=== PATIENT | male | born 1955 | race Hispanic/Latino ===

== ENCOUNTER 2021-02-06 11:51 | Observation (INO) | payer MEDICARE ==
[~2021-02-06] VITALS: Ht 167.6 cm; Wt 83.9 kg
[2021-02-06] MEDS ORDERED: ASPIRIN 81 MG CHEW TAB PO NR (12:05)
[2021-02-06] MEDS ORDERED: NITROGLYCERIN 2% OINT 1 GM PKT TOP ONE (12:15)
[2021-02-06] MEDS ORDERED: PANTOPRAZOLE 40 MG 10ML VIAL IV NR (12:15)
[2021-02-06 12:40] LABS: BASOPHILS % 0.7 % (0.0-1.0); EOSINOPHILS % 0.2 % (0.0-6.0); HEMATOCRIT 45.6 % (38.2-49.6); HEMOGLOBIN 15.8 g/dL (14.0-18.0); LYMPHOCYTES # (AUTO) 1.4 (1.0-3.2); MEAN CORPUSCULAR HEMOGLOBIN 32.1 pg (28-32); MEAN CORPUSCULAR HGB CONC 34.6 g/dL (31-35); MEAN CORPUSCULAR VOLUME 92.7 fL (81-99); MONOCYTES # (AUTO) 0.4 (0.2-0.8); MONOCYTES % 7.2 % (4.4-11.3); NEUTROPHILS # (AUTO) 4.2 (2.1-6.9); NEUTROPHILS % 68.6 % (38.7-80.0); PLATELET COUNT 210 x10e3/uL (140-360); RED BLOOD COUNT 4.92 x10e6/uL (4.3-5.7); RED CELL DISTRIBUTION WIDTH 12.3 % (11.7-14.4)
[2021-02-06 13:00] LABS: ALANINE AMINOTRANSFERASE 25 IU/L (0-55); ALBUMIN 4.2 g/dL (3.5-5.0); ALBUMIN/GLOBULIN RATIO 1.2 (0.8-2.0); ALKALINE PHOSPHATASE 72 IU/L (40-150); ANION GAP 15.6 mmol/L (8-16); BLOOD UREA NITROGEN 12 mg/dL (7-26); BUN/CREATININE RATIO 12 (6-25); CALCIUM 9.4 mg/dL (8.4-10.2); CARBON DIOXIDE 23 mmol/L (22-29); CHLORIDE 106 mmol/L (98-107); CREATINE KINASE 167 IU/L (30-200); CREATININE, SERUM 1.04 mg/dL (0.72-1.25); EST GLOMERULAR FILTRATION RATE > 60 ML/MIN (60-); GLUCOSE 121 mg/dL (74-118); INR 0.87; LIPASE 43 U/L (8-78); MAGNESIUM 2.1 MG/DL (1.3-2.1); POTASSIUM 3.6 mmol/L (3.5-5.1); PROTHROMBIN TIME 12.4 seconds (11.9-14.5); SODIUM 141 mmol/L (136-145)
[2021-02-06 13:01] LABS: PARTIAL THROMBOPLASTIN TIME 29.2 seconds (23.8-35.5)
[2021-02-06] MEDS ORDERED: ONDANSETRON HCL INJ 2MG/ML 2ML 2 MG/ML VIAL IV PRN (14:15)
[2021-02-06] MEDS ORDERED: MORPHINE SULFATE INJ 2 MG/ML SYR IV PRN (14:15)
[2021-02-06] MEDS ORDERED: FAMOTIDINE 20 MG/2 ML VIAL IV SCH (14:15)
[2021-02-06] MEDS ORDERED: METOPROLOL TARTRATE 25 MG TAB PO SCH (14:15)
[2021-02-06 19:24] LABS: CREATINE KINASE MB 1.1 ng/mL (0-5.0)
[2021-02-06] MEDS ORDERED: NITROGLYCERIN 2% OINT 1 GM PKT ONE (19:36)
[2021-02-06 20:48] LABS: CHOL/HDL RATIO 3.7 (3.9-4.7)
[2021-02-06 20:53] VITALS: BP 139/89
[2021-02-06 21:08] LABS: FREE THYROXINE INDEX 1.6551 (1.4-3.8); THYROID STIMULATING HORMONE 1.272 uIU/mL (0.350-4.940)
[2021-02-06 21:24] VITALS: BP 139/89
[2021-02-06 22:43] VITALS: BP 139/89
[2021-02-07] VITALS (10 sets, daily range): BP systolic 103–129; BP diastolic 60–78
[2021-02-07 00:56] LABS: CREATINE KINASE 109 IU/L (30-200)
[2021-02-07 05:52] LABS: BASOPHILS % 0.4 % (0.0-1.0); EOSINOPHILS # (AUTO) 0.1 (0.0-0.4); EOSINOPHILS % 1.1 % (0.0-6.0); HEMATOCRIT 41.7 % (38.2-49.6); HEMOGLOBIN 14.3 g/dL (14.0-18.0); LYMPHOCYTES # (AUTO) 1.6 (1.0-3.2); LYMPHOCYTES % 23.1 % (18.0-39.1); MEAN CORPUSCULAR HEMOGLOBIN 32.6 pg (28-32); MEAN CORPUSCULAR HGB CONC 34.3 g/dL (31-35); MONOCYTES # (AUTO) 0.6 (0.2-0.8); NEUTROPHILS # (AUTO) 4.7 (2.1-6.9); PLATELET COUNT 187 x10e3/uL (140-360); RED BLOOD COUNT 4.39 x10e6/uL (4.3-5.7); RED CELL DISTRIBUTION WIDTH 12.6 % (11.7-14.4)
[2021-02-07 06:27] LABS: ALANINE AMINOTRANSFERASE 22 IU/L (0-55); ALBUMIN 3.6 g/dL (3.5-5.0); ALBUMIN/GLOBULIN RATIO 1.2 (0.8-2.0); ALKALINE PHOSPHATASE 61 IU/L (40-150); ANION GAP 12.9 mmol/L (8-16); BLOOD UREA NITROGEN 13 mg/dL (7-26); BUN/CREATININE RATIO 12 (6-25); CALCIUM 8.8 mg/dL (8.4-10.2); CARBON DIOXIDE 27 mmol/L (22-29); CHLORIDE 106 mmol/L (98-107); CHOLESTEROL 166 MD/DL (0-199); CREATININE, SERUM 1.05 mg/dL (0.72-1.25); EST GLOMERULAR FILTRATION RATE > 60 ML/MIN (60-); GLUCOSE 95 mg/dL (74-118); HDL CHOLESTEROL 42 MG/DL (40-60); LDL CHOLESTEROL 69 MG/DL (60-130); POTASSIUM 3.9 mmol/L (3.5-5.1); SODIUM 142 mmol/L (136-145); TRIGLYCERIDES 277 MG/DL (0-149)
[2021-02-07] MEDS: FAMOTIDINE 20 MG/2 ML VIAL IV SCH ×2 (09:42→21:34)
[2021-02-07] MEDS: ASPIRIN 81 MG ENTERIC COATED PO SCH (09:43)
[2021-02-07] MEDS: METOPROLOL TARTRATE 25 MG TAB PO SCH ×2 (09:52→21:35)
[2021-02-07] MEDS ORDERED: HEPARIN SOD/SOD CHLORIDE 2,000 ML ONE (12:55)
[2021-02-07] MEDS ORDERED: LIDOCAINE HCL 2% LOCAL 20 ML VIAL ONE (12:57)
[2021-02-07] MEDS ORDERED: IOPAMIDOL 370 MG/ML 200 ML INFUS..BTL INJ ONE (12:57)
[2021-02-07] MEDS ORDERED: MIDAZOLAM HCL 2 MG/2 ML VIAL ONE (13:05)
[2021-02-07] MEDS ORDERED: FENTANYL CITRATE/PF 100MCG/2 ML INJ ONE (13:05)
[2021-02-07] MEDS ORDERED: SODIUM CHLORIDE 0.9% 1000ML 1,000 ML ONE (13:05)
[2021-02-07] MEDS ORDERED: SODIUM CHLORIDE 0.9% 50ML 50 ML ONE (13:17)
[2021-02-07] MEDS ORDERED: BIVALRIUDIN 250 MG/VIAL VIAL IV ONE (13:17)
[2021-02-07] MEDS ORDERED: ASPIRIN 325 MG TAB ONE (13:29)
[2021-02-07] MEDS ORDERED: CLOPIDOGREL BISULFATE 75 MG TAB ONE (13:29)
[2021-02-07] MEDS ORDERED: SIMVASTATIN 40 MG TAB PO SCH (21:00)
[2021-02-07] MEDS ORDERED: ATORVASTATIN 40 MG TAB PO SCH (21:00)
[2021-02-08] VITALS: BP 113/70
[2021-02-08 04:00] VITALS: BP 134/80
[2021-02-08 07:14] VITALS: BP 129/76
[2021-02-08 07:52] VITALS: BP 129/76
[2021-02-08] MEDS: ASPIRIN 81 MG ENTERIC COATED PO SCH (08:26)
[2021-02-08] MEDS: FAMOTIDINE 20 MG/2 ML VIAL IV SCH (08:26)
[2021-02-08] MEDS: METOPROLOL TARTRATE 25 MG TAB PO SCH (08:27)
[2021-02-08] MEDS ORDERED: CLOPIDOGREL BISULFATE 75 MG TAB PO SCH (09:00)
[2021-02-08] MEDS ORDERED: METOPROLOL TART25 MG PO (09:37)
[2021-02-08] MEDS ORDERED: ASPIRIN CHEW81 MG PO (09:38)
[2021-02-08] MEDS ORDERED: ATORVASTATIN CA40 MG PO (09:38)
[2021-02-08] MEDS ORDERED: PLAVIX75 MG PO (09:38)
== END 2021-02-08 10:43 | disposition home or self-care (01) ==
LOC: ER 12:53 → ERHOLD 14:15 → MED/SURG 20:41
PROVIDERS: ADMIT Family Medicine; ATTEND Family Medicine
DX: I25.110 Atherosclerotic heart disease of native coronary artery with unstable angina pectoris (principal); I24.9 Acute ischemic heart disease, unspecified; Z82.49 Family history of ischemic heart disease and other diseases of the circulatory system; I10 Essential (primary) hypertension; E78.5 Hyperlipidemia, unspecified; Z20.822 Contact with and (suspected) exposure to COVID-19
CPT/HCPCS: 93458; C9600; 36415; 71045; 80053; 80061; 82550; 82553; 83690; 83735; 83880; 84436; 84443; 84479; 84484; 85025; 85610; 85730; 92928; 93005; 93306; 99152; 99153; 99284; C1725; C1760; C1769; C1874; C1887; G0378; J0583; J2001; J2250; J3010; J7030; Q9967; U0002